=== PATIENT | female | born 1995 | race Two or more races ===

== ENCOUNTER 2022-01-09 03:09 | Emergency (ER) | payer MEDICAID ==
[~2022-01-09] VITALS: Ht 162.6 cm; Wt 109.5 kg
[2022-01-09] MEDS ORDERED: ASPI81TA87 PO (03:14)
[2022-01-09 06:11] VITALS: BP 121/80
[2022-01-09] MEDS ORDERED: IBUP-2070 PO (06:31)
== END 2022-01-09 07:01 | disposition home or self-care (01) ==
LOC: EMS 03:11
DX: S66.912A Strain of unspecified muscle, fascia and tendon at wrist and hand level, left hand, initial encounter (principal); X50.0XXA Overexertion from strenuous movement or load, initial encounter; Y93.89 Activity, other specified; Y92.89 Other specified places as the place of occurrence of the external cause; Z87.891 Personal history of nicotine dependence; Y99.8 Other external cause status
CPT/HCPCS: 99283

== ENCOUNTER 2024-08-22 14:42 | Emergency (ER) | payer MEDICAID ==
[~2024-08-22] VITALS: Ht 162.6 cm; Wt 116.4 kg
[~2024-08-22 14:42] MED LIST: ASPI81TA87 PO; IBUP-1492 PO
[2024-08-22 14:50] VITALS: TEMP 98.3
[2024-08-22] MEDS ORDERED: ALBU18HF12 PO (14:55)
[2024-08-22] MEDS ORDERED: BECL10.6 PO (14:55)
[2024-08-22 16:26] LABS: BASOPHILS % (AUTO) 0.3 % (0.0-2.0); EOSINOPHILS % (AUTO) 1.1 % (1.0-6.0); HEMATOCRIT 36.9 % (36-46); HEMOGLOBIN 12.3 g/dL (12.0-16.0); LYMPHOCYTES # (AUTO) 1.7 K/uL (1.0-4.8); MEAN CORPUSCULAR HEMOGLOBIN 29.8 pg (26.0-34.0); MEAN CORPUSCULAR HGB CONC 33.4 G/dL (31.0-37.0); MEAN CORPUSCULAR VOLUME 89 fL (80-100); MONOCYTES # (AUTO) 0.5 K/uL (0.1-1.0); NEUTROPHILS # (AUTO) 5.4 K/uL (1.8-7.7); NEUTROPHILS % (AUTO) 70.6 % (40.0-70.0); PLATELET COUNT (AUTO) 284 K/uL (150-450); RED BLOOD CELL COUNT(AUTO) 4.13 MIL/uL (4.00-5.20); WHITE BLOOD COUNT (AUTO) 7.6 K/uL (4.5-11.0)
[2024-08-22 16:32] LABS: ANION GAP 8 mmol/L (8-16); CALCIUM, TOTAL 9.2 mg/dL (8.8-10.5); CARBON DIOXIDE 25 mmol/L (22-29); CHLORIDE 103 mmol/L (98-107); CREATININE 0.63 mg/dL (0.60-1.30); GLOMERULAR FILTR. RATE CALC > 60 mL/min (>60); GLUCOSE,RANDOM 88 mg/dL (70-110); POTASSIUM 3.6 mmol/L (3.5-5.1); SODIUM SERUM 136 mmol/L (136-145); UREA NITROGEN, BLOOD 7 mg/dL (7-18)
[2024-08-22] MEDS ORDERED: PYRI25TA4 PO (16:46)
[2024-08-22 17:04] VITALS: BP 115/70; PULSE 74; RESP 18; O2SAT 99
== END 2024-08-22 17:05 | disposition home or self-care (01) ==
LOC: EMS 14:42
DX: O09.32 Supervision of pregnancy with insufficient antenatal care, second trimester (principal); O21.9 Vomiting of pregnancy, unspecified; J45.909 Unspecified asthma, uncomplicated; Z79.51 Long term (current) use of inhaled steroids; Z3A.18 18 weeks gestation of pregnancy
CPT/HCPCS: 80048; 84703; 85025; 99283